=== PATIENT | female | born 1955 | race Caucasian/White ===

== ENCOUNTER 2021-12-05 06:28 | Day surgery (SDC) | payer MEDICARE, OTHER ==
[~2021-12-05] VITALS: Ht 168 cm; Wt 98.0 kg
[~2021-12-05 06:28] MED LIST: ATARAX25 MG PO; BENADRYL25 M1 PO; FLUOXETINE HCL10 MG PO; LISINOPRIL10 MG PO; METFORMIN HCL750 MG PO; MOTRIN600 MG PO
--- NOTE | 2021-12-05 12:44 | NUR ---
PT WILL D/C HOME. PER [employer] [employer]TH[employer] LIASION, NO DC NEEDS.
[2021-12-06 06:46] LABS: BASOPHIL 0.1 % (0-2); EOSINOPHIL 0.3 % (0-7); HCT 30.5 % (37.0-47.0); HGB 10.3 g/dl (12.5-16.0); LYMPHOCYTE 10.9 % (15-48); MCH 30.6 pg (25.0-31.0); MCHC 33.8 g/dL (32.0-36.0); MCV 90.5 fL (78.0-100.0); MONOCYTE 8.2 % (0-12); MPV 11.3 fL (6.0-9.5); NEUTROPHIL 80.3 % (41-80); NRBC 0; PLT 147 K/uL (150-400); RBC 3.37 M/uL (4.20-5.40); RDW 13.2 % (11.5-14.0); WBC 9.2 K/uL (4.0-10.5)
[2021-12-06 08:41] LABS: BUN/CREAT RATIO (CALC) 33.8 RATIO; CREATININE 0.77 mg/dL (0.51-0.95); POTASSIUM 3.8 mmol/L (3.5-5.1)
[2021-12-06] MEDS ORDERED: FEOSOL325 MG PO (09:10)
[2021-12-06] MEDS ORDERED: CHILDREN'S ASPI81 MG PO (09:10)
== END 2021-12-06 12:00 | disposition home or self-care (01) ==
LOC: FAS 06:28 → FSDC 09:33 → FAS 12:00 → EDSTATUS 12:00 → FAS 12-06 12:00
PROVIDERS: Orthopaedic Surgery
DX: S42.292A Other displaced fracture of upper end of left humerus, initial encounter for closed fracture (principal); S46.212A Strain of muscle, fascia and tendon of other parts of biceps, left arm, initial encounter; R11.2 Nausea with vomiting, unspecified; E11.65 Type 2 diabetes mellitus with hyperglycemia; F41.9 Anxiety disorder, unspecified; W19.XXXA Unspecified fall, initial encounter; Y92.008 Other place in unspecified non-institutional (private) residence as the place of occurrence of the external cause
CPT/HCPCS: 36415; 73020; 76000; 80048; 85025; 86850; 86900; 86901; 94010; 97162; 97165; 97530-GP; 97535; C1713; C1776; J0171; J0697; J0735; J1100; J1170; J1885; J2250; J2405; J2704; J2795; J3010; J7120